=== PATIENT | female | born 1955 | race Caucasian/White ===

== ENCOUNTER 2016-07-06 19:54 | Emergency (ER) | payer BC ==
[2016-07-06 20:02] VITALS: BP 105/46; PULSE 70; TEMP 98.1; BMI 18.1
--- NOTE | 2016-07-06 20:08 | PDOC ---
[id number] is a 61 year old female, with no significant past medical history, who presents to the emergency department with a laceration to her right knee s/ p tripping on her slate staircase just prior to arrival. The patient states she washed out the wound after the injury. She states that her knee does not hurt, however, she was concerned about the depth of the wound and the fact the her knee split open the way it did. She reports her last tetanus booster was in 2010 when she travelled to [facility]. She denies chest pain, shortness of breath, headache and dizziness. She denies fever, chills, nausea, vomit, diarrhea and constipation. She denies dysuria, frequency, urgency and hematuria. Allergies: Sulfa drugs <Viviane Almanza - Last Filed: 07/06/16 20:25> <Dilcia Nagel - Last Filed: 07/07/16 02:47> - General Chief Complaint: Laceration Stated Complaint: R KNEE LAC Time Seen by Provider: 07/06/16 19:59 Past History <Viviane Almanza - Last Filed: 07/06/16 20:25> - Past Medical History Cancer: Yes (MELANOMIA) - Immunization History Immunization Up to Date: Yes - Psycho/Social/Smoking Cessation Hx Anxiety: No Suicidal Ideation: No Smoking Status: No Smoking History: Never smoked Have you smoked in the past 12 months: No Number of Cigarettes Smoked Daily: 0 Information on smoking cessation initiated: No Hx Alcohol Use: No Drug/Substance Use Hx: No Substance Use Type: None <Dilcia Nagel - Last Filed: 07/07/16 02:47> - Past Medical History Allergies/Adverse Reactions: Allergies Allergy/AdvReac Type Severity Reaction Status Date / Time SULFER Allergy Uncoded 05/29/12 08:27 Home Medications: Ambulatory Orders No Home Medications 0 dose .ROUTE UTDICT 05/29/12 Review of Systems - Review of Systems Able to Perform ROS?: Yes Comments:: 07/06/16 20:21 CONSTITUTIONAL: Absent: fever, no chills, no fatigue EYES: Absent: visual changes ENT: Absent: ear pain, no sore throat CARDIOVASCUL R: Absent: chest pain, no palpitations RESPIRATORY: Absent: cough, no SOB GI: Absent: abdominal pain, no nausea, no vomiting, no constipation, no diarrhea GENITOURINARY: Absent: dysuria, no frequency, no hematuria MUSKULOSKELETAL: Absent: back pain, no arthralgia, no myalgia SKIN: (+) laceration to right lower extremity. Absent: rash NEURO: Absent: headache <Viviane Almanza - Last Filed: 07/06/16 20:25> *Physical Exam - Vital Signs Last Vital Signs Temp Pulse Resp BP Pulse Ox 98.1 F 70 14 105/46 100 07/06/16 19:58 07/06/16 19:58 07/06/16 19:58 07/06/16 19:58 07/06/16 19:58 - Physical Exam Comments: 07/06/16 20:22 GENERAL: The patient is awake, alert, and fully oriented, in no acute distress. HEAD:[Normal with no signs of trauma. EYES: Pupils equal, round and reactive to light, extraocular movements intact, sclera anicteric, conjunctiva clear. EXTREMITIES: Normal range of motion, no edema. NEUROLOGICAL: Normal speech, normal gait. PSYCH: Normal mood, normal affect. SKIN: (+) 1cm, linear, horizontal superficial laceration to the lower anterior aspect of distal right knee. Warm, Dry, normal turgor, no rashes or lesions noted. <Viviane Almanza - Last Filed: 07/06/16 20:25> - Vital Signs Last Vital Signs Temp Pulse Resp BP Pulse Ox 98.1 F 70 14 105/46 100 07/06/16 19:58 07/06/16 19:58 07/06/16 19:58 07/06/16 19:58 07/06/16 19:58 <Dilcia Nagel - Last Filed: 07/07/16 02:47> Procedures - Laceration/Wound Repair Right Lower Anterior Distal Knee Wound Length: to 2.5 cm (1cm) Wound Explored: clean Wound's Depth, Shape: superficial, linear (horizontal) Wound Repaired With: Dermabond <Viviane Almanza - Last Filed: 07/06/16 20:25> - Laceration/Wound Repair Right Lower Anterior Distal Knee Wound Length: to 2.5 cm Wound's Depth, Shape: linear Irrigated w/ Saline: Yes Betadine Prep: No Wound Repaired With: Dermabond <Dilcia Nagel - Last Filed: 07/07/16 02:47> Progress Note - Progress Note Progress Note: Documentation has been prepared under my direction and personally reviewed by me in its entirety. I attest that this documented accurately reflects all work, treatment, procedures and medical decision making performed by me. <Dilcia Nagel - Last Filed: 07/07/16 02:47> Medical Decision Making - Medical Decision Making As noted above, 61-year-old woman presents with a small laceration below the right knee sustained an hour prior to presentation. Although the wound is not bleeding currently, it is full-thickness. She is up-to-date with tetanus immunization Repair of the laceration with Dermabond skin adhesive was performed as noted above. Patient tolerated the procedure well and will be discharged with instructions to return or see her doctor if she has swelling, pain, increased redness in the wound <Dilcia Nagel - Last Filed: 07/07/16 02:47> *DC/Admit/Observation/Transfer - Attestations Scribe Attestion: 07/06/16 20:25 Documentation prepared by Viviane Almanza, acting as medical oncology physician for Dilcia Nagel MD <Viviane Almanza - Last Filed: 07/06/16 20:25> <Dilcia Nagel - Last Filed: 07/07/16 02:47> Diagnosis at time of Disposition: Laceration of right knee Qualifiers: Encounter type: initial encounter Qualified Code(s): S81.011A - Laceration without foreign body, right knee, initial encounter - Discharge Dispostion Disposition: HOME Condition at time of disposition: Stable - Patient Instructions Printed Discharge Instructions: DI for Laceration Repair With Dermabond Additional Instructions: elevate right leg tonight keep area of wound dry for the next day Banadid during day for 2-3 days/open at night return or see your doctor if area becomes red/ painful/swollen
== END 2016-07-06 20:29 | disposition home or self-care (01) ==
LOC: FER 19:54
PROC: 0HQKXZZ Repair Right Lower Leg Skin, External Approach (ICD-10-PCS; principal; 2016-07-06)
DX: S81.011A Laceration without foreign body, right knee, initial encounter (principal); W10.9XXA Fall (on) (from) unspecified stairs and steps, initial encounter; Y93.89 Activity, other specified; Y92.9 Unspecified place or not applicable; Z85.820 Personal history of malignant melanoma of skin; Z85.89 Personal history of malignant neoplasm of other organs and systems
CPT/HCPCS: 99283-25